=== PATIENT | male | born 1960 | race Caucasian/White ===

== ENCOUNTER 2023-11-03 12:54 | Outpatient (CLI) | payer MEDICARE, SELFPAY ==
--- NOTE | 2023-11-03 17:18 | WPDSIXMINUTE ---
Six Minute Walk Procedure Procedure Performed Pulmonary Stress Test (6 min walk) Six Minute Walk Six Minute Walk: This is a 6 minute walk test. The test was performed and interpreted in accordance with the 2014 ERS/ATS task force guidelines. Findings: The patient's resting room air oxygen saturation measured by pulse oximetry was 95% and heart rate was 82 bpm. Patient ambulated for 305 meters and oxygen saturation remained 94 to 97%. Heart rate at the end of the study was 90 bpm. The patient did not qualify for supplemental oxygen at rest or with ambulation. There are no prior studies for comparison.
--- NOTE | 2023-11-03 17:19 | P.PCNPFT_ITS ---
PFT Procedure Performed PFT Procedure Performed Spirometry with Pre/Post Bronchodilator Plethysmography (Lung Vol) Diffusing Cap (DLCO) Flow Vol Loop PFT Interpretation This is a pulmonary function test with pre and post-bronchodilator spirometry, plethysmography and diffusing capacity. The test was performed and results interpreted in accordance with the 2019 and 2005 ATS/ERS Task Force guidelines respectively using the Global Lung Function Initiative-2012 reference equations. Patient demonstrated good effort and cooperation. Reproducibility criteria were met. The quality of the pre bronchodilator spirometry maneuver was Grade A and post bronchodilator spirometry maneuver was Grade A. Findings: Spirometry: There is decreased maximal expiratory airflow at all lung volumes with a concave expiratory flow tracing. The contour the inspiratory flow tracing is normal. The pre bronchodilator FVC is 3.76 L, 93% predicted. The pre bronchodilator FEV1 is 1.64 L, 52% predicted. The pre bronchodilator FEV1: FVC ratio is 44%. The post bronchodilator FVC is 4.02 L, representing a 7% increase. The post bronchodilator FEV1 is 1.96 L, representing a 19% increase. The post bronchodilator FEV1: FVC ratio is 49%. Plethysmography: The total lung capacity is 8.10 L, 127% predicted. The funct ional residual capacity is 4.99 L, 151% predicted. The residual volume is 4.34 L, 203% predicted. The residual volume: Total lung capacity ratio is 54%. Diffusing capacity: The diffusing capacity unadjusted for hemoglobin and carboxyhemoglobin is 19.6, 74% predicted. The diffusing capacity adjusted for alveolar volume is 3.49, 81% predicted. Impression: There is a moderately severe obstructive abnormality. There is significant improvement after inhaling a single dose of albuterol. The increase in residual volume to total lung volume ratio is consistent with hyperinflation from an obstructive abnormality. The diffusing capacity is normal. There are no prior studies for comparison
== END 2023-11-03 12:55 | disposition home or self-care (01) ==
PROVIDERS: PCP Nurse Practitioner; Visit Provider Internal Medicine Critical Care Medicine
DX: J44.9 Chronic obstructive pulmonary disease, unspecified (principal); R09.02 Hypoxemia; R94.2 Abnormal results of pulmonary function studies
CPT/HCPCS: 94060; 94618; 94726; 94729

== ENCOUNTER 2023-11-23 09:03 | Outpatient (CLI) | payer MEDICARE, SELFPAY ==
--- NOTE | ~2023-11-23 | NM_ITS ---
EXAMINATION: NM thiago stress w perfusion DATE: 11/23/2023 12:11 INDICATION: Hypoxemia. TECHNIQUE: Rest images were obtained following intravenous administration of 10.5 mCi Tc99m tetrofosm in (Myoview). The patient was infused intravenously with Lexiscan (regadenoson). Then, 33.0 mCi Tc99m tetrofosmin (Myoview) was administered intravenously, and stress images were obtained. Data was gisela nstructed into short axis and horizontal and vertical long axis SPECT images. Gated SPECT images were also obtained. COMPARISON: None. FINDINGS: There is a small, mild, fixed perfusion defect involving mid inferior wall of left ventricl e, consistent with infarct. No reversible component to suggest ischemia. There is no segmental wall motion abnormality. Left ventricular ejection fraction measures >70%. IMPRESSION: 1. 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 2. left ventricular ejection fraction measuring %. Reviewed, dictated and finalized at location A.
--- NOTE | 2023-11-23 10:14 | EST_ITS ---
Patient Info Name: Juan Velasco Age: 63 years : 1960 Gender: Male Ht: 67 in Wt: 161 lbs BSA: 1.87 m2 HR: 81 bpm BP: 146 / 83 mmHg Heart Rhythm: Sinus Rhythm Exam Date: 11/23/2023 10:33 AM Exam Location: [facility] Patient Status: Outpatient Admit Date: 11/23/2023 Staff Ordering Physician: Emilia Sheriff MD Attending Provider: Emilia Sheriff MD Exercise Technologist: Yudy Almaguer CT Exercise Physician: Tripp Estrada DO Exam Type: CA stress thiago w NM Study Info Indications - HYPOXEMIA A regadenoson stress test was performed. Summary 1. 1. Negative lexiscan stress test for ischemic ST changes by ECG criteria. 2. 2. Baseline hypertension. 3. 3. Nuclear scan to follow and will be reported separately. Please correlate with it. 4. 4. Patient informed of the above results. Protocol: Lexiscan Stress ECG Details Stage: REST Duration (min): 0 min : 59 sec HR (bpm): 78 SBP (mmHg): 146 DBP (mmHg): 83 Stage: REST Duration (min): 5 min : 12 sec HR (bpm): 71 SBP (mmHg): 146 DBP (mmHg): 83 Stage: STAGE 1 Duration (min): 1 min : 0 sec HR (bpm): 103 SBP (mmHg): 155 DBP (mmHg): 86 Stage: RECOVERY Duration (min): 1 min : 0 sec HR (bpm): 105 SBP (mmHg): 155 DBP (mmHg): 86 Stage: RECOVERY Duration (min): 2 min : 0 sec HR (bpm): 100 SBP (mmHg): 155 DBP (mmHg): 86 Stage: RECOVERY Duration (min): 3 min : 0 sec HR (bpm): 92 SBP (mmHg): 142 DBP (mmHg): 82 Stage: RECOVERY Duration (min): 3 min : 1 sec HR (bpm): 92 SBP (mmHg): 142 DBP (mmHg): 82 Rest HR: 71 bpm Peak HR: 106 bpm Rest Sys BP: 146 mmHg Peak Sys BP: 155 mmHg Max Pred HR: 157 bpm % Max Pred HR: 68 % Target HR: 133 bpm Max RPP: 16,430 bpm*mmHg Termination Reason: Completed protocol Cardiac Symptoms: Shortness of breath Total Time: 1 min : 0 sec Rest Crisostomo BP: 83 mmHg Peak Crisostomo BP: 86 mmHg Total Dose: 0.4 mg Resting ECG Sinus rhythm. Stress ECG No ST changes. Arrhythmias None. Report Signatures
== END 2023-11-23 09:04 | disposition home or self-care (01) ==
LOC: ANHCARD 09:10
PROVIDERS: PCP Nurse Practitioner; Visit Provider Internal Medicine Critical Care Medicine
DX: R09.02 Hypoxemia (principal); J44.9 Chronic obstructive pulmonary disease, unspecified; R06.02 Shortness of breath
CPT/HCPCS: 78452; 93017; A9502; J2785